=== PATIENT | female | born 1970 | race Caucasian/White ===

== ENCOUNTER → 2017-09-26 | Outpatient (REF) | payer BC, OTHER, MEDICARE ==
[2017-09-26 14:19] LABS: HEMOGLOBIN 8.5 g/dl (12.0-15.5); MEAN CORPUSCULAR HEMOGLOBIN 31.4 pg (27.0-33.0); MEAN CORPUSCULAR HGB CONC 32.7 g/dl (32.0-36.5); MEAN CORPUSCULAR VOLUME 95.9 fl (80.0-96.0); PLATELET COUNT, AUTOMATED 500 10^3/uL (150-450); RED BLOOD COUNT 2.71 10^6/uL (4.00-5.40); RED CELL DISTRIBUTION WIDTH 15.1 % (11.5-14.5); WHITE BLOOD COUNT 13.5 10^3/uL (4.0-10.0)
[2017-09-26 14:38] LABS: ALBUMIN/GLOBULIN RATIO 0.83 (1.00-1.93); ALKALINE PHOSPHATASE 108 U/L (45-117); ALT/SGPT 22 U/L (12-78); ANION GAP 9 MEQ/L (8-16); AST/SGOT 22 U/L (7-37); BILIRUBIN,TOTAL 0.2 MG/DL (0.2-1.0); BLOOD UREA NITROGEN 5 MG/DL (7-18); C REACTIVE PROTEIN QUANTITATIV 2.84 MG/DL (0.00-0.30); CALCIUM LEVEL 8.2 MG/DL (8.5-10.1); CARBON DIOXIDE LEVEL 26 MEQ/L (21-32); CHLORIDE LEVEL 105 MEQ/L (98-107); GLOMERULAR FILTRATION RATE > 60.0 (>58); GLUCOSE, FASTING 71 MG/DL (70-100); POTASSIUM SERUM 4.2 MEQ/L (3.5-5.1); SODIUM LEVEL 140 MEQ/L (136-145); TOTAL PROTEIN 6.6 GM/DL (6.4-8.2); VANCOMYCIN RANDOM 26.8 UG/ML
== END ==
LOC: M LAB REF 13:48
DX: T84.53XS Infection and inflammatory reaction due to internal right knee prosthesis, sequela (principal)
CPT/HCPCS: 80053

== ENCOUNTER → 2019-03-19 | Outpatient (REF) | payer BC, MEDICARE | LOC: M LAB LCGH 18:32 | PROVIDERS: ATTEND Obstetrics & Gynecology | DX: N93.9 Abnormal uterine and vaginal bleeding, unspecified (principal) ==

== ENCOUNTER → 2019-05-28 | Outpatient (CLI) | payer OTHER, MEDICARE ==
--- NOTE | 2019-05-30 18:28 | REP ---
Reading of outside mammography and sonography images: History: Outside interpretation requested by Dr. Garcia. The patient underwent screening bilateral mammography at [facility] dated April 30, 2019. Comparison prior mammography September 19, 2014. Diagnostic left breast mammography is from May 23, 2019 along with focused left breast sonography from May 23, 2019. These studies were also performed at [facility]. Findings: The April 2019 screening study was read as showing a focal asymmetry 9 cm from the nipple in the upper outer quadrant posterior third left breast. I do not see a focal asymmetric density on both views. There are two small subcentimeter nodules in the upper outer quadrant of the right breast approximately 9 cm from the nipple which I believe are visible and unchanged from the 2014 study. A questionable density is seen superior to these on the MLO view, but I do not see a corresponding density on the CC view. The diagnostic focal spot compression images obtained in the CC and MLO projection from May 23, 2019 show the above described stable nodules. I do not see the focal asymmetric density on both views. The ultrasound shows no abnormality. Impression: I do not see a mammographic target suitable for stereotactic biopsy. The ultrasound is unremarkable. 6-month follow-up left breast mammography is recommended. Electronically Signed by Carlo Ornelas MD 05/30/2019 07:36 P
== END ==
LOC: M RAD 17:06
PROVIDERS: ATTEND Surgery
DX: N63.20 Unspecified lump in the left breast, unspecified quadrant (principal)

== ENCOUNTER → 2020-01-17 | Outpatient (CLI) | payer OTHER ==
--- NOTE | 2020-01-17 13:25 | REP ---
INDICATION: N63.20 LT BREAST MASS. Six-month follow-up COMPARISON: 04/30/2019 as well as other prior exams TECHNIQUE: MLO and CC views left breast performed with tomosynthesis. Left breast ultrasound performed in the upper-outer quadrant of left breast. FINDINGS: There is no change since the prior studies. There is mild fibroglandular tissue. There is no new mass. Stable nodular opacity is seen laterally. A coarse benign type calcification is also seen laterally. There is no new mass or clustered microcalcifications. Real-time sonographic evaluation of upper outer quadrant left breast performed. No cystic or solid nodule is seen. The Volpara volumetric breast density pattern is A. IMPRESSION: BIRADS/ACR category 3 probably benign. Stable left breast mammogram as discussed above. This patient's Tyrer-Cuzick lifetime breast cancer risk assessment score is 12.6%. This mammogram was interpreted with the aid of an FDA-approved computer-aided detection system. The patient states she had a clinical breast exam in May 2019. The patient letter being requested is M3. RECOMMENDATION: Repeat bilateral mammogram April 2020. <Electronically signed by David Lynch > 01/17/20 [id number]
== END ==
LOC: M WHC 10:54
PROVIDERS: ATTEND Surgery
DX: N63.20 Unspecified lump in the left breast, unspecified quadrant (principal)

== ENCOUNTER → 2020-05-02 | Outpatient (CLI) | payer OTHER ==
--- NOTE | 2020-05-02 13:43 | REP ---
INDICATION: SUREKHA DIAG MAMMO/LEFT BREAST MASS. COMPARISON: Mammography TECHNIQUE: Bilateral CC and MLO) view(s) were taken. Magnified focal spot-compression craniocaudal view and a true mediolateral view were obtained. FINDINGS: Breast parenchyma is predominantly fat replaced with minimal fibroglandular densities.. There is no change in the appearance of the is small nodule noted in the lateral aspect of the left breast in the interval since April 30, 2019. This appears to contain some is central fat density. 4 mm in overall dimension. Benign mammographic appearance. No other significant mammographic finding. No architectural distortion or microcalcification is seen in either breast. The Volpara volumetric breast density pattern is a. IMPRESSION: BIRADS/ACR category 2 benign mammogram. This patient's Tyrer-Cuzick lifetime breast cancer risk assessment score is 12.6%. This mammogram was interpreted with the aid of an FDA-approved computer-aided detection system. The patient states she had a clinical breast exam in December of 2019. The patient letter being requested is M1. RECOMMENDATION: Repeat screening mammography recommended 1 year (for women over 40). <Electronically signed by Eduardo Ornelas > 05/02/20 [id number]
== END ==
LOC: M WHC 12:24
PROVIDERS: ATTEND Surgery
DX: N63.25 Unspecified lump in the left breast, overlapping quadrants (principal)
CPT/HCPCS: 77066; G0279

== ENCOUNTER 2023-06-29 08:33 | Day surgery (SDC) | payer MEDICARE ==
[~2023-06-29] VITALS: Ht 160 cm; Wt 92.5 kg
[~2023-06-29 08:33] MED LIST: B-12100010 PO; CARV12.5 PO; DESV100T3 PO; DSS100CA PO; ENTR1TAB7 PO; EXCETAB32 PO; FERR325T14 PO; LAMO100T3 PO; MIDAZOLAM INJ 2MG/2ML VIAL As Ordered ONE; OMEP-173 PO; QUET200T2 PO; ROSU10TA6 PO; SPIR-10 PO; SUMA100T2 PO; VITA-199 PO; VITA500C24 PO; XALA0.007 OU
[2023-06-29] MEDS: ATROPINE SULFATE 1% OPHTH SOLN 2ML BTL OD SCH (09:03)
[2023-06-29] MEDS: PHENYLEPHRINE 2.5% OPHTH SOL 2ML OD SCH (09:03)
[2023-06-29] MEDS: LIDOCAINE 3.5 % 1ML OPHTH TOPICAL GEL OU ONE (09:03)
[2023-06-29] MEDS: TROPICAMIDE 1% OPHTH SOLN 15ML OD SCH (09:03)
[2023-06-29] MEDS: OFLOXACIN 0.3 % (OCUFLOX) OPTH SOL 5ML OD ONE (09:03)
[2023-06-29] MEDS: CEFUROXIME 1MG/0.1ML INTRACAMERAL INJ As Ordered ONE (10:32)
[2023-06-29] MEDS: LIDOCAINE 1% SDV 5ML VIAL As Ordered ONE (10:32)
[2023-06-29] MEDS: BSS IRRIG/VANCO(10MG)/TOBRA(5MG)/EPINEPH(1:1000-0.5CC)500ML BAG-ORONLY As Ordered ONE (10:32)
[2023-06-29] MEDS: DUOVISC (0.50ML VISCOAT/0.85ML PROVISC) OPHTH KIT As Ordered ONE (10:33)
[2023-06-29] MEDS: PHENYLEPHRINE 10% OPHTH SOL 5ML OD PRN (10:33)
[2023-06-29] MEDS ORDERED: fentaNYL 100 MCG/2 ML INJECTION As Ordered ONE (10:34)
[2023-06-29] MEDS ORDERED: propofoL 200 MG/20 ML VIAL As Ordered ONE (10:36)
[2023-06-29] MEDS: oxyCODONE 5MG TAB PO ONE (11:37)
[2023-06-29 11:56] VITALS: BP 124/66; TEMP 96.7; O2SAT 97
== END 2023-06-29 12:05 | disposition home or self-care (01) ==
LOC: M SDC 08:33
PROVIDERS: ATTEND Ophthalmology
DX: H25.11 Age-related nuclear cataract, right eye (principal); H40.1111 Primary open-angle glaucoma, right eye, mild stage; Z95.810 Presence of automatic (implantable) cardiac defibrillator; I50.9 Heart failure, unspecified; F17.210 Nicotine dependence, cigarettes, uncomplicated; Z88.5 Allergy status to narcotic agent; Z88.8 Allergy status to other drugs, medicaments and biological substances; Z79.899 Other long term (current) drug therapy
CPT/HCPCS: 66991; 92015; C1783; J0697; J2250; J3010; V2788

== ENCOUNTER 2023-10-26 07:42 | Day surgery (SDC) | payer MEDICARE ==
[~2023-10-26] VITALS: Ht 160 cm; Wt 94.3 kg
[~2023-10-26 07:42] MED LIST changes: +ALBU8.5H INH; +COMB0.2S OU; -MIDAZOLAM INJ 2MG/2ML VIAL As Ordered ONE; +PHENYLEPHRINE 10% OPHTH SOL 5ML OS PRN; -ROSU10TA6 PO; +ROSU10TA61 PO; +VALA500T5 PO
[2023-10-26] MEDS: ATROPINE SULFATE 1% OPHTH SOLN 2ML BTL OS SCH (09:31)
[2023-10-26] MEDS: TROPICAMIDE 1% OPHTH SOLN 15ML OS SCH (09:31)
[2023-10-26] MEDS: PHENYLEPHRINE 2.5% OPHTH SOL 2ML OS SCH (09:31)
[2023-10-26] MEDS: LIDOCAINE 3.5 % 1ML OPHTH TOPICAL GEL OU ONE (09:31)
[2023-10-26] MEDS: OFLOXACIN 0.3 % (OCUFLOX) OPTH SOL 5ML OS ONE (09:31)
[2023-10-26] MEDS: CEFUROXIME 1MG/0.1ML INTRACAMERAL INJ As Ordered ONE (10:12)
[2023-10-26] MEDS ORDERED: MIDAZOLAM INJ 2MG/2ML VIAL As Ordered ONE (10:23)
[2023-10-26] MEDS ORDERED: fentaNYL 100 MCG/2 ML INJECTION As Ordered ONE (10:23)
[2023-10-26] MEDS: LIDOCAINE 1% SDV 5ML VIAL As Ordered ONE (10:25)
[2023-10-26] MEDS: DUOVISC (0.50ML VISCOAT/0.85ML PROVISC) OPHTH KIT As Ordered ONE (10:25)
[2023-10-26] MEDS: BSS IRRIG/VANCO(10MG)/TOBRA(5MG)/EPINEPH(1:1000-0.5CC)500ML BAG-ORONLY As Ordered ONE (10:25)
[2023-10-26] MEDS ORDERED: KETOROLAC 60MG 2ML VIAL As Ordered ONE (10:38)
[2023-10-26 10:47] VITALS: BP 139/68; TEMP 97.1; O2SAT 98
== END 2023-10-26 11:01 | disposition home or self-care (01) ==
LOC: M SDC 07:42
PROVIDERS: ATTEND Ophthalmology
DX: H25.12 Age-related nuclear cataract, left eye (principal); H40.1121 Primary open-angle glaucoma, left eye, mild stage; I50.9 Heart failure, unspecified; E78.00 Pure hypercholesterolemia, unspecified; Z79.899 Other long term (current) drug therapy; Z95.810 Presence of automatic (implantable) cardiac defibrillator; Z85.830 Personal history of malignant neoplasm of bone; Z92.21 Personal history of antineoplastic chemotherapy; F17.210 Nicotine dependence, cigarettes, uncomplicated; Z88.5 Allergy status to narcotic agent; Z88.8 Allergy status to other drugs, medicaments and biological substances; K21.9 Gastro-esophageal reflux disease without esophagitis
CPT/HCPCS: 66991; 81025; C1783; J0697; J1885; J2250; J3010; V2788